=== PATIENT | male | born 1940 | race Caucasian/White ===

== ENCOUNTER → 2019-11-04 | Outpatient (CLI) | payer OTHER | LOC: SJCVC 09:57 → SJCVCIMAG 09:57 | DX: R94.31 Abnormal electrocardiogram [ECG] [EKG] (principal); I45.10 Unspecified right bundle-branch block; R42 Dizziness and giddiness; R07.9 Chest pain, unspecified; I25.10 Atherosclerotic heart disease of native coronary artery without angina pectoris; I65.23 Occlusion and stenosis of bilateral carotid arteries; E78.00 Pure hypercholesterolemia, unspecified; I48.91 Unspecified atrial fibrillation; I48.92 Unspecified atrial flutter; I10 Essential (primary) hypertension; I73.9 Peripheral vascular disease, unspecified; Z95.1 Presence of aortocoronary bypass graft; Z95.2 Presence of prosthetic heart valve ==

== ENCOUNTER → 2019-11-13 | Outpatient (CLI) | payer OTHER ==
[~2019-11-13] VITALS: Ht 182.9 cm; Wt 92.5 kg
[~2019-11-13] MED LIST: ATORVASTATIN CA80 MG PO; COUMADIN 1MG TAB1 M1 PO; NOVOLOG100 UNIT/M SUBQ; PROTONIX40 M4 PO; QUINAPRIL 20 MG20 MG PO; TOPROL XL25 MG PO
[2019-11-13 07:18] VITALS: BP 143/66
[2019-11-13 07:49] LABS: HEMATOCRIT 38.6 % (42.0-52.0); HEMOGLOBIN 12.5 gm/dL (14.0-18.0); MCH 26.1 pg (26.0-34.0); MCHC 32.4 g/dL (28.0-37.0); MCV 80.8 fL (80.0-100.0); RBC 4.78 mil/uL (4.50-6.00); RDW 18.5 % (10.5-14.5); WBC 6.7 thou/uL (4.0-11.0)
[2019-11-13 07:52] LABS: CALCIUM 8.8 mg/dL (8.5-10.1); CREATININE 1.2 mg/dL (0.7-1.3)
[2019-11-13 08:00] LABS: INR 1.1; PROTIME 11.2 Seconds (9.3-11.4)
--- NOTE | 2019-11-13 08:40 | EKG ---
[facility] [place] [address] ELECTROCARDIOGRAM REPORT Name: ASHA TRIPP Room #: REG [facility].#: [id number] Admission: 11/13/19 Attend Phys: Clayton Graf MD Discharge: Date of : 44 Report #: [id number] THIS REPORT FOR: cc: Buddy Garcia Craig H. 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[employer] Handler: Tyrell SWANSON : 1940 Requested By: Domenic Torres Order Number: [id number] MD: Bhavik Garcia Measurements Intervals [place] Rate: 72 P: [place]: QRS: 70 QRSD: 140 T: 20 QT: 426 QTc: 467 Interpretive Statements Atrial flutter with predominant 4:1 AV block Compared to ECG 12/09/2008 06:46:12 Atrial flutter has replaced sinus rhythm Electronically Signed On 11-13-2019 8:38:03 CDT by Bhavik Garcia [email or web address] <ELECTRONICALLY SIGNED> By: Bhavik Garcia MD, [facility] 11/13/19 0838 0719 8 Bhavik Garcia MD, [facility] /EPI
--- NOTE | 2019-11-18 10:16 | CATHLAB ---
[facility] [place] [address] INVASIVE PROCEDURE REPORT Name: ASHA TRIPP Room #: REG JEN Turner.#: [id number] Admission: 11/13/19 Attend Phys: Clayton Graf MD Discharge: Date of : 44 Report #: [id number] THIS REPORT FOR: cc: Buddy Garcia Gerald M. MD [facility] ~ APPROVED REPORT Study performed: 11/13/2019 09:26:28 Patient Details Patient Status: Out-Patient Room #: The patient is a 79 year-old male Event Personnel Domenic Torres Paint Crew Supervisor, Kamila Carrasco RN RN, Roopa Corley Paschal, Ja'net RTR Monitor Procedures Performed Art Access - R femoral artery* Coronaries Angiography and Bypass Grafts [id number] [facility] Hemostasis with Manual pressure Procedure Narrative The patient was brought electively to the Cardiac Catheterization Laboratory and was prepped and draped in a sterile manner. The was infiltrated with 1% Lidocaine subcutaneous anesthesia. A 6FR BRITE-TIP sheath was inserted into the RFA^. Coronary angiography was performed using coronary diagnostic catheters. The right coronary system was accessed and visualized with a JR4 catheter. The left coronary system was accessed and visualized with a JL4 catheter. Hemostasis was obtained with manual pressure following sheath removal without any complications. The patient tolerated the procedure well and there were no complications associated with the procedure. There was no hematoma. Intraoperative Conscious Sedation Sedation start time: 8:29 Case end Time: 10:12 Fentanyl 100 mcg Versed 2 mg This was a combo case with Dr. Graf he ordered 50mcg of Fentanyl and 1mg of Versed. Fluoro Time: 9.70 minutes Dose: DAP 06174.90 cGycm2 916 mGy [facility] [place] [address] INVASIVE PROCEDURE REPORT Name: ASHA TRIPP Room #: [facility]#: [id number] Admission: 11/13/19 Attend Phys: Clayton Graf, Discharge: Date of : 44 Report #: [id number] Contrast Type and Amount: Omnipaque 190 ml Hemodynamics The aortic pressure is 179/74 mmHg with a mean of 75 mmHg. Conclusion 1. Left main with mild ostial disease mild calcification no occlusive disease giving rise to LAD circumflex. #2 LAD with mild irregularities proximal calcification is moderately heavy. 2030% irregularities this extends around the apex. No indication for intervention. #3 circumflex OM nondominant small no occlusive disease #4 [place] right coronary artery occluded #5 SVG to PDA is intact with mild irregularities. Recommendations and plan: Continue aggressive risk factor modification. No indication for coronary intervention. Will follow discharge protocol. <ELECTRONICALLY SIGNED> By: Domenic Torres MD, [facility] 11/18/19 1014 1014 1014 Domenic Torres MD, FAC /INF
== END | disposition home or self-care (01) ==
LOC: CATH 06:32
PROVIDERS: Internal Medicine Cardiovascular Disease
DX: I25.810 Atherosclerosis of coronary artery bypass graft(s) without angina pectoris (principal); I65.23 Occlusion and stenosis of bilateral carotid arteries; I73.9 Peripheral vascular disease, unspecified; I70.1 Atherosclerosis of renal artery; I10 Essential (primary) hypertension; I48.91 Unspecified atrial fibrillation; I48.92 Unspecified atrial flutter; E11.9 Type 2 diabetes mellitus without complications; E78.00 Pure hypercholesterolemia, unspecified; J44.9 Chronic obstructive pulmonary disease, unspecified; F17.210 Nicotine dependence, cigarettes, uncomplicated; Z98.890 Other specified postprocedural states; Z79.899 Other long term (current) drug therapy; Z95.1 Presence of aortocoronary bypass graft; Z79.4 Long term (current) use of insulin; Z79.01 Long term (current) use of anticoagulants; Z95.2 Presence of prosthetic heart valve; Z96.651 Presence of right artificial knee joint

== ENCOUNTER → 2020-01-13 | Outpatient (CLI) | payer OTHER ==
[~2020-01-13] MED LIST changes: +AMARYL4 MG PO; +ASPIR 8181 M1 PO; +BYSTOLIC10 MG PO; +ENOXAPARIN100 MG/1 M SUBQ; +LISINOPRIL10 MG PO; +MUPIROCIN22 GM NASAL; +NORVASC10 MG PO; +PLAVIX 75 MG TA75 MG PO; +PROTONIX40 M2 PO; +VITAMIN C500 M1 PO; +VITAMIN D31250 MCG PO
== END | disposition home or self-care (01) ==
LOC: LAB
PROVIDERS: ATTEND Student in an Organized Health Care Education/Training Program
DX: Z01.812 Encounter for preprocedural laboratory examination (principal); Z20.828 Contact with and (suspected) exposure to other viral communicable diseases; I65.29 Occlusion and stenosis of unspecified carotid artery; Z98.890 Other specified postprocedural states; Z79.899 Other long term (current) drug therapy; Z88.2 Allergy status to sulfonamides; Z88.8 Allergy status to other drugs, medicaments and biological substances

== ENCOUNTER 2020-01-15 11:53 | Inpatient (IN) | payer OTHER ==
[~2020-01-15] VITALS: Ht 182.9 cm; Wt 99.8 kg
[~2020-01-15 11:53] MED LIST changes: -BYSTOLIC10 MG PO; -ENOXAPARIN100 MG/1 M SUBQ; -LISINOPRIL10 MG PO; -MUPIROCIN22 GM NASAL; -NORVASC10 MG PO
[2020-01-15 12:15] VITALS: BP 143/66
[2020-01-15 13:26] LABS: HEMATOCRIT 40.8 % (42.0-52.0); MCH 27.2 pg (26.0-34.0); MCHC 31.8 g/dL (28.0-37.0); MCV 85.5 fL (80.0-100.0); RBC 4.77 mil/uL (4.50-6.00); RDW 22.1 % (10.5-14.5); WBC 6.3 thou/uL (4.0-11.0)
[2020-01-15 13:38] LABS: CALCIUM 8.4 mg/dL (8.5-10.1); CREATININE 1.1 mg/dL (0.7-1.3); POTASSIUM 3.8 mmol/L (3.5-5.1)
[2020-01-15 13:39] LABS: INR 1.2; PROTIME 12.6 Seconds (9.3-11.4)
[2020-01-15 13:44] LABS: ALBUMIN 3.9 g/dL (3.4-5.0); TOTAL PROTEIN 7.3 g/dL (6.4-8.2)
--- NOTE | 2020-01-15 16:38 | NUR ---
IV STARTED. PENDING LAB RESULTS TO START PT'S HEPARIN GTT. PT. VERY CONVERSATIONAL AND POLITE, SHARE DHE LOST HIS RECENTLY OF 60 YEAR'S. DENIES ANY CHEST PAIN, DENIES ANY SOB, NOR ANY PAIN.
[2020-01-15 19:44] VITALS: BP 140/56
[2020-01-15 19:50] VITALS: BP 140/56
[2020-01-15 23:50] VITALS: BP 160/66
[2020-01-16 04:00] VITALS: BP 145/62
--- NOTE | 2020-01-16 06:40 | NUR ---
SLEPT PART OF SHIFT. WORKING ON GOALS AND PLAN OF CARE FOR NOC. NO FURTHER COMPLAINTS OF HEADACHE OR NECK ACHE. PROGRESSING TOWARDS GOALS FOR SURGERY MONDAY. PATIENT NOT SURE WHO TO PUT DESIGNATED PERSON SO WILL TALK WITH KIDS AND DECIDE. CONTINUE TO MONITOR HEPARIN AND LABS CLOSELY.
[2020-01-16 07:10] VITALS: BP 143/71
--- NOTE | 2020-01-16 08:24 | NUR ---
PT. ALERT AND CHATTING WITH STAFF. STATED HE "SLEPT ALL OF THE NIGHT AND NO ISSUES". HEADACHE HAS RESOLVED MOSTLY NOW A LEVEL=2 OF PAIN BUT "NOT AN ISSUE"...MEDICATIONS GIVEN NOW. IV IS NOW LEFT FOREARM UNDERSIDE, NO INFILTRATION OBSERVED.
[2020-01-16 11:26] VITALS: BP 129/63
[2020-01-16 15:00] VITALS: BP 104/55
--- NOTE | 2020-01-16 15:21 | NUR ---
11:30-PTT CAME BACK IN THERAPEUTIC RANGE THEREFORE NO CHANGES AT ALL IN CURRENT DOSING REGIME AND NEXT PTT WOULD BE DONE IN THE AM TOMORROW. NO SIGN'S OF BLEEDING.
--- NOTE | 2020-01-16 15:22 | NUR ---
PT. C/O HEADACHE TYLENOL GIVEN FOR SUCH, DESCRIBES IT "DULL AND OFTEN FROM HIS MUSCLE BEING TIGHT". TALKED ABOUT UPCOMING SURGERY AND WHAT TO EXPECT POST OP IN HIS RECOVERY.
--- NOTE | 2020-01-16 15:41 | NUR ---
PT. UP AT SIDE OF THE BED TO DANGLE, WANTS TO WALK THE UNIT-WILL VERIFY THIS WITH HIS CARE PLAN.
[2020-01-16 20:23] VITALS: BP 145/58
[2020-01-17] VITALS (30 sets, daily range): BP systolic 78–151; BP diastolic 25–89
--- NOTE | 2020-01-17 07:51 | NUR ---
0630 SLEPT MOST OF SHIFT. AM BATH COMPLETED. PREOP CHECK LIST COMPLETED. TO OR PER CART PAST REPORT. BELONGINGS INCLUDING CELL PHONE AND DENTURES TO ICU.
--- NOTE | 2020-01-17 12:41 | O ---
[facility] [place] [address] OPERATIVE REPORT Name: ASHA TRIPP Room #: 150-4 ADM IN M.R.#: [id number] Admission: 01/15/20 Attend Phys: Asha Gant MD Discharge: Date of : 44 Report #: [id number] THIS REPORT FOR: cc: Buddy Garcia,Buddy Inman,Asha Christensen MD ~ CC: Buddy Gant DATE OF SERVICE: 01/17/2020 PREOPERATIVE DIAGNOSIS: Left carotid artery stenosis. POSTOPERATIVE DIAGNOSIS: Left carotid artery stenosis. OPERATION: Transcarotid arterial revascularization, left side. SURGEON: Dr. Asha Gant and Dr. Clayton Graf SAMPLE STITCHER: PEGGY Bhakta ANESTHESIA: General. INDICATIONS: The patient is a 79-year-old with 80% left internal carotid stenosis. The patient presents with dizziness and near syncope, right side has trivial disease at the bifurcation. The patient has multiple areas of peripheral vascular disease and other spots, however. Because the patient had a mechanical aortic valve placed several years ago. He was admitted for IV heparin as a bridge to surgery and this will be started once cleared from this operation. TECHNIQUE: After general anesthesia was established, an incision was made in the left neck to expose the common carotid artery. A 5-0 Prolene pursestring was placed after vascular control was obtained. 10,000 units of heparin were given. The right femoral vein was accessed and the egress catheter was placed over a guidewire using fluoroscopic guidance. The carotid artery was entered with the arterial needle and a thin wire was passed into the internal carotid. Over this, the IV cannula was placed and then through this, an exchange was made for the stiffer wire. Over the stiffer wire, the TCAR access catheter was placed. An arteriogram was done to confirm placement and then balloon dilatation was [facility] [address] [address] OPERATIVE REPORT Name: ASHA TRIPP Room #: 150-4 ADM IN M.R.#: [id number] Admission: 01/15/20 Attend Phys: Asha Gant MD Discharge: Date of : 44 Report #: [id number] done with a 4 x 30 Cordis balloon. Two inflations of this were necessary. With the predilatation complete, the 8 x 40 Enroute stent was placed under fluoroscopic guidance. After the stent was placed, a 5.5 x 30 Cordis was used for post balloon dilatation. We waited 2 minutes and then performed an arteriogram. It should be mentioned that a CT was checked before proceeding with the transcarotid revascularization. The antegrade flow was stopped, and flow was initiated through the carotid to the femoral vein shot. After the arteriogram was taken, antegrade flow was reestablished and the carotid shunt was removed and the femoral component was also removed. The pursestring was able to close the arteriotomy nicely, but I added a second 6-0 Prolene reinforcement stitch. 25 mg of protamine was given to partially reverse and hemostasis was ascertained. The wound was closed in layers. Pressure was applied to the groin for the femoral access. When hemostasis was satisfactory, the wound was closed in the usual fashion and the patient was taken to the recovery area in satisfactory condition having tolerated the procedure well and there his neurologic progress was monitored. All counts reported as correct. <ELECTRONICALLY SIGNED> By: Asha Gant MD 01/17/20 1241 1104 1136 Asha Gant MD /nt
--- NOTE | 2020-01-17 12:41 | HC ---
[facility] [place] [address] CONSULTATION Name: ASHA TRIPP Room #: 150-4 ADM IN M.R.#: [id number] Admission: 01/15/20 Attend Phys: Asha Gant MD Discharge: Date of : 44 Report #: [id number] THIS REPORT FOR: cc: Buddy Garcia Damon DO Forman, John M. MD ~ CC: Buddy Gant DATE OF SERVICE: 01/15/2020 We were asked to see the patient in pursuance of treatment of his carotid artery disease. The patient was admitted by the hospitalists at our request for heparin bridge prior to transcarotid arterial revascularization. HISTORY OF PRESENT ILLNESS: The patient is a 79-year-old who has 80% left internal carotid artery stenosis. The patient also has a history of mechanical aortic valve replacement and is on chronic warfarin anticoagulation for this. The patient presents with a history of dizziness. This led to the carotid evaluation. PAST MEDICAL HISTORY: Hypertension, hyperlipidemia, diabetes mellitus, atrial fibrillation, chronic obstructive pulmonary disease. ALLERGIES: None known. MEDICATIONS AT HOME: Atorvastatin, insulin, metoprolol, quinapril, warfarin, pantoprazole, glimepiride, calcium, vitamin D, aspirin, and Plavix. SOCIAL HISTORY: The patient is a chronic smoker. FAMILY HISTORY: Not pertinent. REVIEW OF SYSTEMS: GENERAL: The patient denies fever, generalized fatigue. EYES: No vision change. HEENT: No headache. No nasal discharge. No sore throat. RESPIRATORY: No new cough or shortness of breath. CARDIAC: No new angina. GASTROINTESTINAL: No nausea, vomiting or diarrhea. GENITOURINARY: No urgency, frequency, blood. MUSCULOSKELETAL: No bone or joint problems. SKIN: No rash or infection. HEMATOLOGIC: Does report easy bruisability related to the anticoagulation. [facility] [address] [place] [address] CONSULTATION Name: ASHA TRIPP Tyrell Room #: 150-4 [facility] IN Johnny.#: [id number] Admission: 01/15/20 Attend Phys: Asha Gant MD Discharge: Date of : 42 Report #: [id number] MUSCULOSKELETAL: No bone or joint problems. NEUROLOGIC: No motor or sensory dysfunction. PSYCHIATRIC: Reports some depression following his 's recent . PHYSICAL EXAMINATION: GENERAL: The patient is a thin fellow. He is oriented and appropriate. VITAL SIGNS: Temperature 36.7, blood pressure 143/66, heart rate 70, room air O2 sat 99. HEENT: No scleral icterus, no arcus. NECK: No mass. There is a left carotid bruit audible. CHEST: Clear to auscultation. HEART: Rhythm is irregular. Valve click is audible. ABDOMEN: Soft, no mass. EXTREMITIES: No clubbing, cyanosis or edema. We note small ecchymoses scattered on the forearms. MUSCULOSKELETAL: No bone or joint problems, ectomorphic habitus. IMPRESSION: The patient has an 80% left internal carotid stenosis that we have recommended treatment with transcarotid arterial revascularization. For this, we need to admit the patient for an IV heparin bridge in preparation for surgery and warfarin has been stopped. We have scheduled surgery for Monday morning. We appreciate the hospitalist's help in managing this patient with multiple medical issues. Thank you for the consult. <ELECTRONICALLY SIGNED> By: Asha Gant MD 01/17/20 1241 1513 1903 Asha Gant MD /nt
--- NOTE | 2020-01-17 13:00 | NUR ---
pT RECIEVED FROM PACU AAOX4, SPEECH CLEAR, NEURO INTACT FOLLOWS COMMANDS. pLACED ON THE MONITOR, SHOWS NSR, JOAQUINA INTACT. RT NECK DRESSING INTACT WITH SMALL AMT OF DRAINAGE NOTED. PT ON RA. LUNGS CLEAR. ABD SOFT FORLEY TO DD URINE YELLOW. WILL CONT TO MONITOR.
--- NOTE | 2020-01-17 14:31 | NUR ---
chart review. pt up in bed, eating lunch. pt moved to icu after L carotid stenosis s/p TCAR op arteriography. per bedside staff pt independent. noted in chart pt independent. lives alone recently lost his . has son griffin zayas for support. no anticpated needs for dc. will cont following as needed for dc needs.
--- NOTE | 2020-01-17 18:00 | NUR ---
PT PROGRESSING SLOWING STILL C/OING OF HIS NECK AND HIS MOUTH BEING SO DRY. MONITO STILL SHOWING AFLUUTER AND SBP WNL. WILL CONT TO MONITOR.
[2020-01-17 23:14] LABS: HEMATOCRIT 35.2 % (42.0-52.0); HEMOGLOBIN 11.4 gm/dL (14.0-18.0); MCH 27.6 pg (26.0-34.0); MCHC 32.4 g/dL (28.0-37.0); MCV 85.2 fL (80.0-100.0); RBC 4.13 mil/uL (4.50-6.00); RDW 22.5 % (10.5-14.5); WBC 12.8 thou/uL (4.0-11.0)
[2020-01-17 23:42] LABS: INR 1.1; PROTIME 11.1 Seconds (9.3-11.4)
[2020-01-18] VITALS (23 sets, daily range): BP systolic 89–143; BP diastolic 26–81
[2020-01-18 07:10] LABS: HEMATOCRIT 33.8 % (42.0-52.0); HEMOGLOBIN 10.9 gm/dL (14.0-18.0); MCH 27.5 pg (26.0-34.0); MCHC 32.2 g/dL (28.0-37.0); MCV 85.6 fL (80.0-100.0); RBC 3.95 mil/uL (4.50-6.00); RDW 22.2 % (10.5-14.5); WBC 11.9 thou/uL (4.0-11.0)
--- NOTE | 2020-01-18 07:26 | NUR ---
ASSESSMENT DOCUMENTED.PT RESTING IN THE CHAIR AT THIS TIME IN NO ACUTE DISTRESS.S/P TCAR 22 LEFT CAROTID ARTERY STENOSIS.DRESSING INTACT TO LEFT NECK INCISION,NO ACTIVE BLEEDING OR HEMATOMA NOTED.PT HYPOTENSIVE,BLOOD PRESSURE MAINTAINED ON LEVOPHED,INFUSING AT 3MCG/MIN.PT AFLUTTER WITH SVR ON MONITOR.HEPARIN DRIP INFUSING AT 10ML/HR.LAST APPT THERAPEUTIC.NO EDEMA TO DOMINIC LES.ART LINE INTACT,RIGHT FA SUPPORTED WITH ARM BENNETT.ON RA W/O RESP DISTRESS NOTED.PT GET TIRED EASILY UPON EXERTION.FOLY DD,YELLOW URINE,ADEQAUTE UO NOTE AND DOCUMENTED.SBA WITH TRANSFERS.PT REMAINS ALERT AND ORIENTED X4.C/O HEADACHES AND LIGHTHEADEDNESS INTERMITTENTLY ACCOMPANIED BY NAUSEA.HEADACHES CONTROLLED WITH TYLENOL WHILE NAUSEA IS CONTROLLED WITH ZOFRAN AND PPI.BOWEL SOUNDS HYPOACTIVE,REQUESTED TO GET TO BSCX3 W/O BM BUT PASSES FLATUS.PT DENIES ANY OTHER NEEDS AT THIS TIME.POC IS TO CONT W/CURRENT TX.WILL MONITOR.
[2020-01-18 07:28] LABS: CALCIUM 8.1 mg/dL (8.5-10.1); CREATININE 1.2 mg/dL (0.7-1.3)
--- NOTE | 2020-01-18 14:41 | NUR ---
DR. RAPP INFORMED THAT DR. JOY INCREASED COUMADIN DOSE TO 10MG.
--- NOTE | 2020-01-18 17:32 | NUR ---
PT TRANSFERED FROM ICU IN STABLE CONDITION. HAD HR 30'S DR. JACKSON NOTIFIED. NO NEW ORDERS. SEEN BY DR. RAPP. ORDERS GIVEN TO D/C ADELA. HEPARIN DRIP INFUSING. A FLUTTER ON TELE. NO CONCERNS AT THIS TIME. WILL CONTINUE TO MONITOR.
[2020-01-19 00:30] VITALS: BP 125/46
[2020-01-19 04:30] VITALS: BP 138/53
--- NOTE | 2020-01-19 05:14 | NUR ---
Assumed pt care at 1900. Pt is alert and oriented. No sign of distress noted in pt. Pt is ambulatory and steady. Call light within reach. Assessment completed and documented. Scheduled meds administered to pt . Tolerated PO intake. Continue to monitor pt. Denies any further needs at this time.
[2020-01-19 07:52] VITALS: BP 129/52
[2020-01-19 10:48] LABS: INR 1.1; PROTIME 11.4 Seconds (9.3-11.4)
[2020-01-19 11:32] VITALS: BP 114/47
[2020-01-19 16:30] VITALS: BP 138/63
[2020-01-19 19:49] VITALS: BP 157/72
--- NOTE | 2020-01-19 20:51 | NUR ---
RECEIVED PT'S CARE AROUND 0720; PT. ON BED; ALERT; DURING AM ASSESSMENT AOX4; C/O HEADACHE; PRN ACETAMINOPHEN GIVEN TOGETHER WITH AM; EDUCATED ABOUT THE REASON OF HOLDING BP MEDICATION; EDUCATED ABOUT THE NEED OF TEAKING PO & IV BLOOD THINNERS; ST. UNDERSTANDING; EDUCATED ABOUT FALL PREVENTIONS; ST. UNDERSTANDING; PRN MIRALAX GIVEN; PROM JUICE GIVEN; PT. ST. HAVING SMALL BM DURING AM; FEELING SOME CONSTIPATION; EDUCATED ABOUT NOT PUSHING WHILE TRYING TO HAVE A BM; AMBULATED AROUND THE [place] DURING THE AFTERNOON; TOLERATED WELL; AFLUTTER ON THE MONITOR; ASSESSMENT CHARGED; FOLLOWING POC; PASSED ON REPORT;
[2020-01-20 03:10] VITALS: BP 143/62
[2020-01-20 05:26] LABS: HEMATOCRIT 32.2 % (42.0-52.0); HEMOGLOBIN 10.4 gm/dL (14.0-18.0); MCHC 32.1 g/dL (28.0-37.0); MCV 87.2 fL (80.0-100.0); RBC 3.7 mil/uL (4.50-6.00); RDW 23.3 % (10.5-14.5)
[2020-01-20 05:50] LABS: APTT 50.2 Seconds (24.5-32.8); INR 1.2; PROTIME 11.8 Seconds (9.3-11.4)
--- NOTE | 2020-01-20 07:10 | NUR ---
ASSESSMENT DOCUEMENTED.PT BEEN RESTING IN NO ACUTE DISTRESS.A/OX4.VSS.ON HEAPRIN DRIP AT 10UNITS/KG/HR,APPT THIS AM THERAPEUTIC.INR 1.2.AFLUTTER W/ SVR AT TIME ON MONITOR.ON RA W/O RESP DISTRESS.AMBULATES INDEPENDENTLY TO BR.VOIDING ADEQAUTELY.CONT TO C/O OF MILD HEADCHES THAT ARE CONTROLLED WITH TYLENOL W/RELIEF.DENIES DIZZINESS OR SYNCOPE SPELLS.POC IS TO HAVE STABLE INR AT ATLEAST 1.8 THEN DISCHARGE TO HOME.PT ON COUMADIN 10MG AND PLAVIX 75MG WELL,NO ACTIVE BLEEDING NOTED.
[2020-01-20 08:00] VITALS: BP 129/47
[2020-01-20 10:20] VITALS: BP 139/72; BP 143/64; BP 151/70
[2020-01-20] MEDS ORDERED: MUPIROCIN22 GM NASAL (10:28)
[2020-01-20] MEDS ORDERED: COUMADIN 1MG TAB1 M1 PO (10:28)
[2020-01-20] MEDS ORDERED: LISINOPRIL10 MG PO (10:28)
[2020-01-20] MEDS ORDERED: ENOXAPARIN100 MG/1 M SUBQ (10:40)
--- NOTE | 2020-01-20 13:17 | NUR ---
ASSUMMED PT CARE AT APPROXIMATELY 0700. PT A&O X4. ASSESSMENT CHARTED. FALL PRECAUTIONS IN PLACE. PT DENIES HAVING CHEST PAIN. PT DENIES HAVING SOB. PT DENIES HAVING ACUTE PAIN. PT DISCHARGING HOME C SELF CARE. INTRUCTIONS GIVEN AND PT STATED UNDERSTANDING. PT GOING HOME C HEART MONITOR. EDUCATION GIVEN FOR PT TO FOLLOW UP C DR. ENRIQUE. IV'S DC. TELE DC. PT AMBULATES STEADY/INDPENDENT AROUND UNIT. PT COMFORTABLE. PT DENIES HAVING FURTHER CONCERNS.
[2020-01-20 13:20] VITALS: BP 143/64
== END 2020-01-20 14:01 | disposition home or self-care (01) | DRG 35 ==
LOC: 2N 11:53 → PRE 01-17 08:21 → TBA 01-17 08:33 → PRE 01-17 08:35 → ICU 01-17 12:55 → 2N 01-18 15:28
PROVIDERS: Hospitalist; Physician Assistant; ADMIT Surgery Vascular Surgery; ATTEND Surgery Vascular Surgery
PROC: 037L3DZ Dilation of Left Internal Carotid Artery with Intraluminal Device, Percutaneous Approach (ICD-10-PCS; principal; 2020-01-17)
DX: I65.22 Occlusion and stenosis of left carotid artery (principal); I48.92 Unspecified atrial flutter; I48.21 Permanent atrial fibrillation; R57.9 Shock, unspecified; I10 Essential (primary) hypertension; J44.9 Chronic obstructive pulmonary disease, unspecified; I25.10 Atherosclerotic heart disease of native coronary artery without angina pectoris; E11.51 Type 2 diabetes mellitus with diabetic peripheral angiopathy without gangrene; F17.210 Nicotine dependence, cigarettes, uncomplicated; K21.9 Gastro-esophageal reflux disease without esophagitis; I35.0 Nonrheumatic aortic (valve) stenosis; E78.5 Hyperlipidemia, unspecified; Z96.652 Presence of left artificial knee joint; Z95.1 Presence of aortocoronary bypass graft; Z88.8 Allergy status to other drugs, medicaments and biological substances; Z82.49 Family history of ischemic heart disease and other diseases of the circulatory system; Z88.2 Allergy status to sulfonamides; Z79.01 Long term (current) use of anticoagulants; Z95.820 Peripheral vascular angioplasty status with implants and grafts; Z90.49 Acquired absence of other specified parts of digestive tract; Z79.4 Long term (current) use of insulin; Z95.2 Presence of prosthetic heart valve; Z79.82 Long term (current) use of aspirin; Z79.899 Other long term (current) drug therapy
CPT/HCPCS: 10078; 10081; 47375; 50010; 50101; 50386; 50417; 51301; 54118; 56524; 56526; 56528; 65020; 65040; 70005

== ENCOUNTER → 2020-01-22 | Outpatient (CLI) | payer OTHER ==
[~2020-01-22] MED LIST changes: +BYSTOLIC10 MG PO; +ENOXAPARIN100 MG/1 M SUBQ; +LISINOPRIL10 MG PO; +MUPIROCIN22 GM NASAL; +NORVASC10 MG PO
== END ==
LOC: SJCVC 10:52
PROVIDERS: ATTEND Internal Medicine Cardiovascular Disease
DX: Z51.81 Encounter for therapeutic drug level monitoring (principal); I48.91 Unspecified atrial fibrillation; J44.9 Chronic obstructive pulmonary disease, unspecified; E11.9 Type 2 diabetes mellitus without complications; I25.10 Atherosclerotic heart disease of native coronary artery without angina pectoris; I10 Essential (primary) hypertension; E78.00 Pure hypercholesterolemia, unspecified; Z95.2 Presence of prosthetic heart valve; Z79.01 Long term (current) use of anticoagulants; Z79.899 Other long term (current) drug therapy

== ENCOUNTER 2020-01-23 19:35 | Inpatient (IN) | payer OTHER ==
[~2020-01-23] VITALS: Ht 182.9 cm; Wt 105.7 kg
--- NOTE | ~2020-01-23 | HC ---
[facility] [place] [address] CONSULTATION Name: ASHA TRIPP Room #: 209-P ADM IN M.R.#: [id number] Admission: 01/23/20 Attend Phys: Tico Bland MD Discharge: Date of : 44 Report #: [id number] THIS REPORT FOR: cc: Buddy Garcia,Buddy Inman,Asha Christensen MD ~ CC: Buddy Bland DATE OF SERVICE: 01/24/2020 HISTORY OF PRESENT ILLNESS: We were asked to see the patient. The patient is known to me from a transcarotid arterial revascularization procedure done approximately 1 week ago. Because the patient has a mechanical aortic valve, the patient had been bridged on IV heparin, both prior to and after the procedure. The TCAR procedure generally requires 1 month of aspirin and Plavix after surgery as well. The patient had satisfactory hospital convalescence after the last procedure and was discharged to home on Coumadin with some subcutaneous Lovenox until the INR was satisfactory. The patient appears to have been concerned about some swelling yesterday and sought consultation in the Emergency Department where he was admitted for observation overnight. There is no history of shortness of breath or swallowing difficulty with the hematoma. PAST MEDICAL HISTORY: Also significant for chronic atrial fibrillation, hypertension, hyperlipidemia, diabetes mellitus. MEDICATIONS: Lisinopril, warfarin, Lovenox in addition to atorvastatin, insulin, pantoprazole, glimepiride, Plavix. ALLERGIES: SULFA AND METFORMIN. SOCIAL HISTORY: The patient is a tobacco smoker. REVIEW OF SYSTEMS: CONSTITUTIONAL: No fever or chills. EYES: No vision changes. HEENT: The patient complains of headaches. No sinus problems. No swallowing difficulty. RESPIRATORY: No shortness of breath. CARDIAC: No chest pain. GASTROINTESTINAL: No nausea, vomiting, blood. GENITOURINARY: No urgency, frequency, blood. [facility] [address] [place] [address] CONSULTATION Name: ASHA TRIPP Room #: 209-P [facility] IN [facility]#: [id number] Admission: 01/23/20 Attend Phys: Tico Bland MD Discharge: Date of : 44 Report #: [id number] MUSCULOSKELETAL: No bone or joint pain. SKIN: Increased ecchymoses related to the anticoagulation. ENDOCRINE: No goiter, no tremor. PSYCHIATRIC: Anxiety. PHYSICAL EXAMINATION: VITAL SIGNS: In the hospital, the patient is afebrile, heart rate 90, atrial fibrillation. Blood pressure 164/61. HEENT: No scleral icterus, no arcus. NECK: Some hematoma at the incision site in the lower left neck with no pulsatility to this. No bruit audible. CHEST: Clear to auscultation. HEART: Rhythm is atrial fibrillation. No murmurs. Valve sounds are crisp. ABDOMEN: Soft, no mass, no tenderness. EXTREMITIES: No clubbing, cyanosis or edema. SKIN: We do note ecchymoses on arms. PSYCHIATRIC: The patient is sedated now. IMPRESSION: The patient has a hematoma related to the multiple anticoagulation regimen. Ultimately, the patient needs to be only on Coumadin and it would be nice to have a short transition period with Plavix 1 month. I will discuss with the others how we can manage this. There appears to be no indication for surgical intervention at this point. Thank you for the consult. By: 0826 0836 Asha Gant MD /nt
[~2020-01-23 19:35] MED LIST changes: -BYSTOLIC10 MG PO; -NORVASC10 MG PO
[2020-01-23 19:44] VITALS: BP 169/74
[2020-01-23 20:15] LABS: CALCIUM 8.6 mg/dL (8.5-10.1); CREATININE 1.1 mg/dL (0.7-1.3); POTASSIUM 4.2 mmol/L (3.5-5.1)
[2020-01-23 20:20] LABS: HEMATOCRIT 34.6 % (42.0-52.0); HEMOGLOBIN 11.3 gm/dL (14.0-18.0); MCH 28.3 pg (26.0-34.0); MCHC 32.7 g/dL (28.0-37.0); MCV 86.6 fL (80.0-100.0); RDW 23.8 % (10.5-14.5); WBC 5.5 thou/uL (4.0-11.0)
[2020-01-23 21:53] LABS: PROTIME 28.7 Seconds (9.3-11.4)
[2020-01-23 22:04] LABS: INR 2.8
[2020-01-23 23:09] VITALS: BP 152/71
[2020-01-23 23:34] VITALS: BP 172/87
[2020-01-24] VITALS (18 sets, daily range): BP systolic 128–218; BP diastolic 52–111
--- NOTE | 2020-01-24 01:33 | NUR ---
DUPLICATE MAKER ACTIVATED FOR PAIN. SEE RAPID REPSONSE INTERVENTION FOR DOCUMENTATION. PT REMAINED ON THE UNIT.
--- NOTE | 2020-01-24 05:22 | NUR ---
PT ARRIVED AT THE UNIT AROUND 2345, PT IS AWAKE, ALERT AND ORIENTED, MAKES NEEDS KNOWN, PT C/O PAIN ON THE LEFT NECK, PAIN MEDICATION GIVEN WITH NO RELIERF, BP ELEVATED, WEED BURNER NOTIFIFIED, ORDER RECEIVED WITH METOPROLOL, PT BP REMAINED ELEVATED, RAPID TEAM CALLED AROUND 0105, PT WAS SWEATING, HR ELEVATED; PAIN NOT RELIEVED BY PAIN MEDICINE, PAIN RADIATING TO THE BACK OF HIS NECK AND HEADACHE, EKG SHOWED AFLUTTER WITH RBBB, PAIN MEDICATIONS Q2 HRS WITH NO RELIEVE, BP AND HR REMAINS ELEVATED, DR. JACKSON ORDERED AN EXTRA DOSE OF MORPHINE, GIVEN WITH NO RELIEVE, DR. RAPP NOTIFIED ABT THE PT, NO ORDERS RECEIVED, WILL CONTINUE TO MONITOR
--- NOTE | 2020-01-24 08:12 | NUR ---
MULTIMEDIA JOURNALIST INFORMED ABT SUSTAINED TACHYCARDIA, ORDERS RECEIVED, CARDIZEM BOLUS GIVEN AND CARDIZEM GTT STARTED AT AROUND 0750, HR CONTROLLED, CARDENE STOPPED, BP 149/52, PT IS DROWSY AND CONFUSED PROBABLY D/T MEDICATIONS, MULTIM[employer]IA JOURNALIST AWARE; ASSEESSMENTS CHARTED, PASSED ON REPORT TO DAY NURSE
--- NOTE | 2020-01-24 09:17 | EKG ---
[facility] [place] [address] ELECTROCARDIOGRAM REPORT Name: ASHA TRIPP Room #: 209-P ADM IN M.R.#: [id number] Admission: 01/23/20 Attend Phys: Tico Bland MD Discharge: Date of : 44 Report #: [id number] THIS REPORT FOR: cc: Buddy Garcia Damon DO Lundgren,Bhavik Gaytan MD [facility] THIS REPORT FOR: //name// [facility] Test Date: 2020-01-24 Test Time: 01:06:35 Pat Name: ASHA TRIPP Department: Room: 209 Gender: M Silviculturist: Ki Brizuela : 1940 Requested By: Nidhi Dunn Order Number: [id number] MD: Bhavik Garcia Measurements Intervals [employer] Rate: 73 P: [place]: QRS: 29 QRSD: 147 T: 29 QT: 456 QTc: 503 Interpretive Statements Atrial flutter with varied AV block, Ventricular premature complex Right bundle branch block Baseline wander in lead(s) V1 Compared to ECG 11/13/2019 07:19:17 Ventricular premature complex(es) now present Electronically Signed On 01-24-2020 9:17:00 CDT by Bhavik Garcia [email or web address] <ELECTRONICALLY SIGNED> By: Bhavik Garcia MD, [facility] 01/24/20 0917 5 5 Bhavik Garcia MD, [facility] /EPI
--- NOTE | 2020-01-24 09:17 | EKG ---
[facility] [place] [address] ELECTROCARDIOGRAM REPORT Name: ASHA TRIPP Room #: 209-P ADM IN M.R.#: [id number] Admission: 01/23/20 Attend Phys: Tico Bland MD Discharge: Date of : 44 Report #: [id number] THIS REPORT FOR: cc: Buddy Garcia Damon DO Lundgren,Bhavik aGytan MD [facility] ~ THIS REPORT FOR: //name// [facility] Test Date: 2020-01-24 Test Time: 06:18:55 Pat Name: ASHA TRIPP Department: Room: 209 Gender: M [place] Block Setter: [id number] : 1940 Requested By: Nidhi Dunn Order Number: [id number] MD: Bhavik Garcia Measurements Intervals [place] Rate: 119 P: [place]: QRS: -20 QRSD: 143 T: 8 QT: 380 QTc: 535 Interpretive Statements Atrial flutter Ventricular premature complex Right bundle branch block Probable inferior infarct, age indeterminate Compared to ECG 01/24/2020 01:06:35 Inferior Q waves are now present Electronically Signed On 01-24-2020 9:17:39 CDT by Bhavik Garcia [email or web address] <ELECTRONICALLY SIGNED> By: Bhavik Garcia MD, [facility] 01/24/20916 7 7 Bhavik Garcia MD, [facility] /EPI
--- NOTE | 2020-01-24 09:18 | EKG ---
[facility] [place] [address] ELECTROCARDIOGRAM REPORT Name: ASHA TRIPP Room #: 209- ADM IN M.R.#: [id number] Admission: 01/23/20 Attend Phys: Tico Bland MD Discharge: Date of : 44 Report #: [id number] THIS REPORT FOR: cc: Buddy Garcia Damon DO Lundgren,Bhavik Gaytan MD [facility] ~ THIS REPORT FOR: //name// [facility] Test Date: 2020-01-24 Test Time: 06:18:55 Pat Name: ASHA TRIPP Department: Room: 209 Gender: M Therapy Tech: [id number] : 1940 Requested By: Tico Bland Order Number: [id number] MD: Bhavik Garcia Measurements Intervals [place] Rate: 119 P: VA: QRS: -20 QRSD: 143 T: 8 QT: 380 QTc: 535 Interpretive Statements Atrial flutter Ventricular premature complex Right bundle branch block Probable inferior infarct, age indeterminate Compared to ECG 01/24/2020 01:06:35 No significant change was found Electronically Signed On 01-24-2020 9:17:55 CDT by Bhavik Garcia [email or web address] <ELECTRONICALLY SIGNED> By: Bhavik Garcia MD, [facility] 01/24/20916 7 7 Bhavik Garcia MD, [facility] /EPI
[2020-01-24 09:23] LABS: HEMOGLOBIN 11.3 gm/dL (14.0-18.0); MCHC 32.2 g/dL (28.0-37.0); RBC 4.03 mil/uL (4.50-6.00); RDW 23.5 % (10.5-14.5); WBC 10.3 thou/uL (4.0-11.0)
[2020-01-24 09:31] LABS: CALCIUM 8.4 mg/dL (8.5-10.1); CREATININE 1.2 mg/dL (0.7-1.3); POTASSIUM 4.1 mmol/L (3.5-5.1)
[2020-01-24 09:34] LABS: INR 2.8; PROTIME 29.2 Seconds (9.3-11.4)
--- NOTE | 2020-01-24 14:28 | NUR ---
Nutrition: Pt admitted with post op hematoma to left neck, S/P Left TCAR on 01/16 and just D/C on 01/19. CTS consult. Nsg indicated poor intake and weight loss. [employer] hx does not indicate weight loss rather current weight up 5# from several days ago. Good po intake documented on recent admit. Unable to obtain further information as pt sleeping/groggy due to pain meds given earlier today. BG 270-277 with hx DM. Will add carb controlled to heart healthy diet order. Follow po intake trends but consider low nutrition risk.
--- NOTE | 2020-01-24 18:26 | NUR ---
ASSUMMED PT CARE AT APPROXIMATELY 0700. PT A&O X3 AND DROWSY MOST OF THE DAY. IN LATER AFTERNOON, PT BECAME MORE ALERT AND AWAKE. PT DENIES HAVING CHEST PAIN. PT DENIES HAVING SOB. PT DENIES HAVING ACUTE PAIN. PT HR AND BLOOD PRESSURE ELEVATED AT BEGINNING OF SHIFT. PT ON CARDIZEM AND CARDENE THROUGHOUT DAY. SEE MEDICATION TITRATION INTERVENTION. PT BLOOD PRESSURE STABLE. PT HR STABLE. VITAL SIGNS STABLE. MOVED PT CLOSER TO NURSING STATION AT BEGINNING OF SHIFT DUE TO PT BEING IMPULSIVE. PT CALM AND COOPERATIVE. PT COMFORTABLE. PT DENIES HAVING FURTHER CONCERNS.
[2020-01-25] VITALS: BP 182/74
[2020-01-25 04:00] VITALS: BP 150/71
--- NOTE | 2020-01-25 04:59 | NUR ---
PT IS ALERT AND ORIENTED X4. LUNGS ARE CLEAR ON ROOM AIR. WATCHES TV. AT ONE POINT DURING THE NIGHT INSTRUCTED HIM TO GET SOME REST AND TURN THE TV OFF. PAIN MEDS GIVEN NECK PAIN 7. COULDNT SLEEP.RESTING NOW AFTER TV OFF. LEFT NECK IS SWOLLEN AND PAINFULL. UP TO BEDSIDE COMMODE WITH ASSISTANCE. CALL LIGHT WITHIN REACH IF NEEDS ASSISTANCE WITH NURSING CARE
[2020-01-25 05:08] LABS: HEMATOCRIT 32.5 % (42.0-52.0); HEMOGLOBIN 10.6 gm/dL (14.0-18.0); MCH 28.4 pg (26.0-34.0); MCHC 32.8 g/dL (28.0-37.0); MCV 86.7 fL (80.0-100.0); PLATELET COUNT 187 thou/uL (150-400); RBC 3.74 mil/uL (4.50-6.00); WBC 9.4 thou/uL (4.0-11.0)
[2020-01-25 05:10] LABS: INR 3.5
[2020-01-25 05:23] LABS: ALBUMIN 3.4 g/dL (3.4-5.0); CALCIUM 8.6 mg/dL (8.5-10.1); CREATININE 0.9 mg/dL (0.7-1.3); MAGNESIUM 1.9 mg/dL (1.8-2.4); PHOSPHORUS 1.9 mg/dL (2.5-4.9); POTASSIUM 3.7 mmol/L (3.5-5.1); TOTAL BILIRUBIN 1.6 mg/dL (0.2-1.0); TOTAL PROTEIN 6.7 g/dL (6.4-8.2)
[2020-01-25 07:35] VITALS: BP 152/70
[2020-01-25 08:40] LABS: ABSOLUTE NEUTROPHILS 6.8 thou/uL (1.4-8.2)
[2020-01-25 08:41] LABS: ANISOCYTOSIS 1+; PLATELET ESTIMATE NORMAL
[2020-01-25] MEDS ORDERED: NORVASC10 MG PO (12:20)
[2020-01-25] MEDS ORDERED: BYSTOLIC10 MG PO (12:21)
[2020-01-25 12:41] VITALS: BP 152/70
--- NOTE | 2020-01-25 13:12 | NUR ---
ASSUMED CARE AT SHIFT CHANGE, ALERT AND ORIENTED X4, VSS. ASSESSMENT CHARTED AND SCHEDULED MORING MEDS GIVEN. DISCHARGE AND MEDICATION INSTRUCTION GIVEN TO PATIENT. DISCAHRGED HOME.
[2020-01-27 03:06] LABS: GLYCOHEMOGLOBIN (HGB A1C) 6.6 % (4.8-5.6)
== END 2020-01-25 13:29 | disposition home or self-care (01) | DRG 920 ==
LOC: ER 19:35 → 2N 22:46 → EROBS 22:46 → 2N 23:37
PROVIDERS: Internal Medicine; Nurse Practitioner; Nurse Practitioner Adult Health; ADMIT Hospitalist; ATTEND Hospitalist
DX: I97.638 Postprocedural hematoma of a circulatory system organ or structure following other circulatory system procedure (principal); I48.92 Unspecified atrial flutter; I48.20 Chronic atrial fibrillation, unspecified; Y83.9 Surgical procedure, unspecified as the cause of abnormal reaction of the patient, or of later complication, without mention of misadventure at the time of the procedure; K21.9 Gastro-esophageal reflux disease without esophagitis; J44.9 Chronic obstructive pulmonary disease, unspecified; I35.0 Nonrheumatic aortic (valve) stenosis; E11.51 Type 2 diabetes mellitus with diabetic peripheral angiopathy without gangrene; I16.0 Hypertensive urgency; I10 Essential (primary) hypertension; E78.5 Hyperlipidemia, unspecified; Z96.651 Presence of right artificial knee joint; Z79.01 Long term (current) use of anticoagulants; Z95.4 Presence of other heart-valve replacement; Z95.1 Presence of aortocoronary bypass graft; Z87.891 Personal history of nicotine dependence; Z90.49 Acquired absence of other specified parts of digestive tract; Y92.89 Other specified places as the place of occurrence of the external cause; Z88.2 Allergy status to sulfonamides; Z88.8 Allergy status to other drugs, medicaments and biological substances; Z72.89 Other problems related to lifestyle
CPT/HCPCS: 10081

== ENCOUNTER → 2020-01-28 | Outpatient (CLI) | payer OTHER ==
[~2020-01-28] MED LIST changes: +BYSTOLIC10 MG PO; +NORVASC10 MG PO
== END ==
LOC: SJCVC 10:16
PROVIDERS: ATTEND Internal Medicine Cardiovascular Disease
DX: Z51.81 Encounter for therapeutic drug level monitoring (principal); I25.10 Atherosclerotic heart disease of native coronary artery without angina pectoris; E11.9 Type 2 diabetes mellitus without complications; J44.9 Chronic obstructive pulmonary disease, unspecified; I10 Essential (primary) hypertension; E78.00 Pure hypercholesterolemia, unspecified; Z79.01 Long term (current) use of anticoagulants; Z95.2 Presence of prosthetic heart valve; Z79.899 Other long term (current) drug therapy

== ENCOUNTER → 2020-01-30 | Outpatient (CLI) | payer OTHER | LOC: SJCVC 10:52 | PROVIDERS: ATTEND Internal Medicine Cardiovascular Disease | DX: Z51.81 Encounter for therapeutic drug level monitoring (principal); I48.91 Unspecified atrial fibrillation; I25.10 Atherosclerotic heart disease of native coronary artery without angina pectoris; I10 Essential (primary) hypertension; E11.9 Type 2 diabetes mellitus without complications; E78.00 Pure hypercholesterolemia, unspecified; Z95.2 Presence of prosthetic heart valve; Z79.01 Long term (current) use of anticoagulants; Z79.899 Other long term (current) drug therapy ==

== ENCOUNTER → 2020-02-03 | Outpatient (CLI) | payer OTHER | LOC: SJCVC 10:45 | PROVIDERS: ATTEND Internal Medicine Cardiovascular Disease | DX: Z51.81 Encounter for therapeutic drug level monitoring (principal); I48.91 Unspecified atrial fibrillation; I25.10 Atherosclerotic heart disease of native coronary artery without angina pectoris; E11.9 Type 2 diabetes mellitus without complications; J44.9 Chronic obstructive pulmonary disease, unspecified; I10 Essential (primary) hypertension; Z95.2 Presence of prosthetic heart valve; E78.00 Pure hypercholesterolemia, unspecified; E78.5 Hyperlipidemia, unspecified; Z79.01 Long term (current) use of anticoagulants; Z79.4 Long term (current) use of insulin; Z79.899 Other long term (current) drug therapy ==

== ENCOUNTER → 2020-02-06 | Outpatient (CLI) | payer OTHER | LOC: SJCVC 12:54 | PROVIDERS: ATTEND Internal Medicine Cardiovascular Disease | DX: Z51.81 Encounter for therapeutic drug level monitoring (principal); Z79.01 Long term (current) use of anticoagulants ==

== ENCOUNTER → 2020-02-12 | Outpatient (CLI) | payer OTHER | LOC: SJCVC 09:58 | PROVIDERS: ATTEND Nuclear Medicine Nuclear Cardiology | DX: Z51.81 Encounter for therapeutic drug level monitoring (principal); I48.91 Unspecified atrial fibrillation; E11.9 Type 2 diabetes mellitus without complications; J44.9 Chronic obstructive pulmonary disease, unspecified; I25.10 Atherosclerotic heart disease of native coronary artery without angina pectoris; I10 Essential (primary) hypertension; I73.9 Peripheral vascular disease, unspecified; E78.00 Pure hypercholesterolemia, unspecified; Z95.2 Presence of prosthetic heart valve; Z79.01 Long term (current) use of anticoagulants; Z79.899 Other long term (current) drug therapy ==

== ENCOUNTER → 2020-02-17 | Outpatient (CLI) | payer OTHER | LOC: SJCVCIMAG 09:19 | PROVIDERS: ATTEND Nuclear Medicine Nuclear Cardiology | DX: I65.23 Occlusion and stenosis of bilateral carotid arteries (principal); I25.10 Atherosclerotic heart disease of native coronary artery without angina pectoris; I10 Essential (primary) hypertension; E11.9 Type 2 diabetes mellitus without complications; I73.9 Peripheral vascular disease, unspecified; I48.91 Unspecified atrial fibrillation; R00.1 Bradycardia, unspecified; J44.9 Chronic obstructive pulmonary disease, unspecified; E78.00 Pure hypercholesterolemia, unspecified; F17.210 Nicotine dependence, cigarettes, uncomplicated; Z95.2 Presence of prosthetic heart valve; Z79.01 Long term (current) use of anticoagulants; Z79.899 Other long term (current) drug therapy ==

== ENCOUNTER → 2020-09-08 | Outpatient (CLI) | payer OTHER | LOC: SJCVCIMAG 07:36 | PROVIDERS: ATTEND Internal Medicine Cardiovascular Disease | DX: R94.31 Abnormal electrocardiogram [ECG] [EKG] (principal); I08.8 Other rheumatic multiple valve diseases; I11.9 Hypertensive heart disease without heart failure; I65.23 Occlusion and stenosis of bilateral carotid arteries; I70.203 Unspecified atherosclerosis of native arteries of extremities, bilateral legs; I45.10 Unspecified right bundle-branch block; I48.92 Unspecified atrial flutter; E11.51 Type 2 diabetes mellitus with diabetic peripheral angiopathy without gangrene; I48.91 Unspecified atrial fibrillation; E78.00 Pure hypercholesterolemia, unspecified; I77.9 Disorder of arteries and arterioles, unspecified; I25.10 Atherosclerotic heart disease of native coronary artery without angina pectoris; J44.9 Chronic obstructive pulmonary disease, unspecified; F17.210 Nicotine dependence, cigarettes, uncomplicated; Z72.89 Other problems related to lifestyle; Z79.82 Long term (current) use of aspirin; Z79.899 Other long term (current) drug therapy; Z79.4 Long term (current) use of insulin; Z79.01 Long term (current) use of anticoagulants; Z95.2 Presence of prosthetic heart valve; Z88.2 Allergy status to sulfonamides; Z88.8 Allergy status to other drugs, medicaments and biological substances ==

== ENCOUNTER → 2020-09-15 | Outpatient (CLI) | payer OTHER | LOC: SJCVC 10:24 | PROVIDERS: ATTEND Internal Medicine Cardiovascular Disease | DX: R94.31 Abnormal electrocardiogram [ECG] [EKG] (principal); I45.10 Unspecified right bundle-branch block; I21.9 Acute myocardial infarction, unspecified; I48.3 Typical atrial flutter; I49.5 Sick sinus syndrome; I25.10 Atherosclerotic heart disease of native coronary artery without angina pectoris; E11.59 Type 2 diabetes mellitus with other circulatory complications; E78.00 Pure hypercholesterolemia, unspecified; J43.9 Emphysema, unspecified; I48.91 Unspecified atrial fibrillation; I45.5 Other specified heart block; Z79.4 Long term (current) use of insulin; Z79.82 Long term (current) use of aspirin; Z79.899 Other long term (current) drug therapy; Z88.2 Allergy status to sulfonamides; Z95.1 Presence of aortocoronary bypass graft; Z88.8 Allergy status to other drugs, medicaments and biological substances ==

== ENCOUNTER → 2020-09-21 | Outpatient (CLI) | payer OTHER | LOC: SJCVC 09:33 | PROVIDERS: ATTEND Internal Medicine Cardiovascular Disease | DX: Z51.81 Encounter for therapeutic drug level monitoring (principal); I48.91 Unspecified atrial fibrillation; E11.51 Type 2 diabetes mellitus with diabetic peripheral angiopathy without gangrene; J44.9 Chronic obstructive pulmonary disease, unspecified; I25.10 Atherosclerotic heart disease of native coronary artery without angina pectoris; I10 Essential (primary) hypertension; E78.00 Pure hypercholesterolemia, unspecified; Z95.2 Presence of prosthetic heart valve; Z79.01 Long term (current) use of anticoagulants ==

== ENCOUNTER → 2020-09-28 | Outpatient (CLI) | payer OTHER ==
[~2020-09-28] MED LIST changes: +ASPIRIN EC81 M1 PO; +NORVASC5 MG PO; +OLMESARTAN MEDO40 MG PO; +PERCOCET 10-321 EAC1 PO; +TIZANIDINE HCL4 M1 PO; +WARFARIN SODIUM3 MG PO
== END ==
LOC: SJCVC 08:27
PROVIDERS: ATTEND Internal Medicine Cardiovascular Disease
DX: Z51.81 Encounter for therapeutic drug level monitoring (principal); I48.91 Unspecified atrial fibrillation; E11.9 Type 2 diabetes mellitus without complications; J44.9 Chronic obstructive pulmonary disease, unspecified; I25.10 Atherosclerotic heart disease of native coronary artery without angina pectoris; I10 Essential (primary) hypertension; I73.9 Peripheral vascular disease, unspecified; E78.00 Pure hypercholesterolemia, unspecified; Z95.2 Presence of prosthetic heart valve; Z79.4 Long term (current) use of insulin; Z79.01 Long term (current) use of anticoagulants; Z79.899 Other long term (current) drug therapy; Z87.891 Personal history of nicotine dependence

== ENCOUNTER → 2020-09-28 | Outpatient (CLI) | payer OTHER | LOC: LAB 08:03 | PROVIDERS: ATTEND Internal Medicine Cardiovascular Disease | DX: Z01.812 Encounter for preprocedural laboratory examination (principal); Z20.822 Contact with and (suspected) exposure to COVID-19 ==

== ENCOUNTER 2020-09-30 06:27 | Observation (INO) | payer OTHER ==
[2020-09-30] VITALS (9 sets, daily range): BP systolic 129–154; BP diastolic 42–66
[~2020-09-30] VITALS: Ht 182.9 cm; Wt 98.9 kg
--- NOTE | ~2020-09-30 | P ---
[facility] [place] [address] PROCEDURE REPORT Name: ASHA TRIPP Room #: 213-P [facility]..#: [id number] Admission: 09/30/20 Attend Phys: Ajith Wallace MD, Discharge: Date of : 44 Report #: [id number] THIS REPORT FOR: cc: Buddy Garcia,Pineda Fuentes MD ~ DATE OF SERVICE: 09/30/2020 SVT ABLATION PREOPERATIVE DIAGNOSES: 1. Atrial flutter. 2. Bradycardia. 3. Prior mechanical aortic valve replacement. HISTORY: The patient is a 80-year-old with history of coronary artery disease, status post CABG and AVR in 2005 with a documented bradycardia on a recent cafeteria monitor. The patient has been in atrial flutter, which appears to be typical in nature for several years. He is here for atrial flutter ablation, EP study and possible pacemaker if bradycardia is noted. ANESTHESIA: The patient underwent MAC anesthesia with no anesthesia related complications. PROCEDURES PERFORMED: 1. SVT ablation, CPT code 29917. 2. Left atrial pacing and recording, CPT code 49290. 3. Intracardiac ultrasound, CPT code 08519. 4. 3D mapping, CPT code 60755. DESCRIPTION OF PROCEDURE: The patient underwent informed consent. We discussed the details of the procedure including the risks, which include but not limited to bleeding, vascular damage, stroke, NH as well as damage to mohegan conduction system requiring pacemaker. We discussed that if we find that he is bradycardic or has advanced AV block we will proceed with dual chamber pacemaker implantation during the same setting and the risks of this procedure included but are not limited to bleeding, infection, vascular damage, cardiac perforation, pneumothorax. He understood these risks and is willing to proceed. The patient was brought to the EP laboratory in fasting and nonsedated state and prepped and draped in a sterile fashion. His warfarin had been held and he therefore underwent a JOSE ANGEL performed by Dr. Wallace showing no evidence of left atrial appendage thrombus. As such, he was prepped for atrial flutter ablation. I injected lidocaine to the right groin and obtained access to the right femoral vein x 3, placing an 8, 9 and 7-Sinhala short sheath using the modified Seldinger technique. Next, under fluoroscopy, a decapolar catheter was placed [address] [address] PROCEDURE REPORT Name: ASHA TRIPP Room #: 213-P [facility] Satinder Engel#: [id number] Admission: 09/30/20 Attend Phys: Ajith Wallace MD, Discharge: Date of : 44 Report #: [id number] into the coronary sinus for left atrial pacing and recording. At baseline, the patient was in atrial flutter with a ventricular cycle length of 880 milliseconds and atrial cycle length of 235 milliseconds with a proximal to distal activation along the CS, a QRS duration of 119 milliseconds with a right bundle branch block and a QT interval 430 milliseconds. Next, I opened up an 8 mm ablation catheter and placed it in the right atrium and we created a detailed 3D voltage map and activation map of the atrial flutter and the map showed evidence of typical cavotricuspid isthmus dependent flutter in a counterclockwise manner. ATRIAL FLUTTER ABLATION: Next, the patient was prepared for ablation. An 8 mm ablation catheter was placed via a ramp sheath into the right atrium and ablation was performed at 70 valle and 60 degrees and a continuous drag lesion was performed. The continuous drag lesion was concluded until I fell into the IVC and the flutter had not terminated. It appeared that there were still signals along the posterior aspect of the line and therefore, I attempted to ablate this by retrograde prolapse along this region, but this did not result in termination. Therefore, I inspected along my prior line and on the proximal third of my line, there were some signals and ablation here resulted in termination of atrial flutter. The transisthmus conduction time was only 120 milliseconds. Therefore, I performed additional ablation, both medial and lateral to this region and then a repeat testing was performed and the transisthmus conduction time was now 170 milliseconds with an activation pattern consistent with bidirectional block. Post-ablation, the patient remained tachycardic and it was hard to determine if this was an atrial tachycardia or sinus tachycardia. The P-wave morphologies were somewhat biphasic in the inferior leads. Therefore, I thought this could be a possible omer tach. Therefore, map was performed and it appeared that everything was mapping close to the SA node. I performed pacing at this site and there was no phrenic nerve compromise. I performed 3 ablation lesions at this site and did not result in termination. Therefore, EP study was performed and I attempted to terminate this tachycardia and it appeared that it would terminate for about a second and then go right back into it. At this point, I thought this was likely just sinus tachycardia with an unusual P-wave morphology and I could not get it to terminate for more than 1 beat which may have just represented his sinus node recovery time. As such, the procedure was concluded. Post-ablation, he was in sinus tach at 515 milliseconds, QRS duration 200 milliseconds, ____ milliseconds, QT interval 350 milliseconds. Using intracardiac ultrasound, I verified there was no pericardial effusion. I then performed a oqdiup-cw-[id number] suture to his right groin, which was anchored by a 3-way stopcock. The patient awoke neurologically and hemodynamically intact. No complications and no significant bleeding. CONCLUSIONS: 1. Successful atrial flutter ablation. [facility] [address] [place] [address] PROCEDURE REPORT Name: ASHA TRIPP Room #: 213-P [facility] M.R.#: [id number] Admission: 09/30/20 Attend Phys: Ajith Wallace MD, Discharge: Date of : 42 Report #: [id number] 2. Normal SA gilbert function. 3. Normal AV gilbert function. 4. Normal His-Purkinje function. 5. No other inducible arrhythmias on or off isoproterenol. By: 1115 36 Pineda Herron MD /nt
[~2020-09-30 06:27] MED LIST changes: -ASPIRIN EC81 M1 PO; -NORVASC5 MG PO; -OLMESARTAN MEDO40 MG PO; -PERCOCET 10-321 EAC1 PO; -TIZANIDINE HCL4 M1 PO; -WARFARIN SODIUM3 MG PO
[2020-09-30 07:26] LABS: ABSOLUTE NEUTROPHILS 3.4 thou/uL (1.4-8.2); BASOPHILS 2.1 % (0.0-2.0); EOSINOPHILS 2.3 % (0.0-3.0); HEMATOCRIT 27.1 % (42.0-52.0); HEMOGLOBIN 8.6 gm/dL (14.0-18.0); LYMPHOCYTES 15.4 % (24.0-44.0); MCH 30.3 pg (26.0-34.0); MCHC 31.7 g/dL (28.0-37.0); MCV 95.6 fL (80.0-100.0); MONOCYTES 11.8 % (1.0-8.0); PLATELET COUNT 298 thou/uL (150-400); POLYS 68.4 % (36.0-66.0); RBC 2.84 mil/uL (4.50-6.00); WBC 4.9 thou/uL (4.0-11.0)
[2020-09-30 07:33] LABS: POTASSIUM 4.1 mmol/L (3.5-5.1)
[2020-09-30 07:38] LABS: ALBUMIN 3.6 g/dL (3.4-5.0); TOTAL BILIRUBIN 0.9 mg/dL (0.2-1.0)
[2020-09-30 07:52] LABS: APTT 25.2 Seconds (24.5-32.8); INR 1.4; PROTIME 14.2 Seconds (9.3-11.4)
[2020-09-30] MEDS ORDERED: NORVASC5 MG PO (08:49)
[2020-09-30] MEDS ORDERED: WARFARIN SODIUM3 MG PO (08:55)
[2020-09-30] MEDS ORDERED: TIZANIDINE HCL4 M1 PO (09:01)
[2020-09-30] MEDS ORDERED: OLMESARTAN MEDO40 MG PO (09:04)
[2020-09-30] MEDS ORDERED: ASPIRIN EC81 M1 PO (09:07)
[2020-09-30] MEDS ORDERED: PERCOCET 10-321 EAC1 PO (09:12)
--- NOTE | 2020-09-30 09:20 | TEE ---
[facility] Gabriel Rodriguez [facility] [place] [address] TRANSESOPHAGEAL ECHOCARDIOGRAM Name: ASHA TRIPP Room #: REG [facility]#: [id number] Admission: 09/30/20 Attend Phys: Ajith Wallace MD, Discharge: Date of : 44 Report #: [id number] THIS REPORT FOR: cc: Buddy Garcia Damon DO Santiago, Patrick MD [facility] ~ APPROVED REPORT Study performed: 09/30/2020 07:32:15 EXAM: Comprehensive 2D, Doppler, and color-flow Echocardiogram Patient Location: Out-Patient Room #: EP Lab Status: routine BSA: 2.23 HR: 66 bpm BP: 160/69 mmHg Rhythm: Atrial Flutter Other Information Study Quality: Good Indications Atrial Fibrillation Echo Enhancing Agent Indication: Rule out Shunt Agent(s) / Amount(s) Used: Agitated Saline 7 cc Procedure After obtaining informed consent, patient underwent transesophageal echo in the EP Lab. Type of Sedation : Conscious Sedation Sedation was administered by Anesthesiologist. Sedation start time: 809 Case end Time: 820 Sedation was achieved intravenously with: Propofol (100 mcg) Transesophageal probe was inserted and advanced into esophagus without difficulty by Ajith Wallace MD. Echo enhancement indication: R/O Septal defect. Echo enhancement agent administered: Agitated Saline The JOSE ANGEL was performed without complications. Throughout the procedure, the blood pressure, pulse oximetry, cardiac [facility] [address] [place] [address] TRANSESOPHAGEAL ECHOCARDIOGRAM Name: ASHA TRIPP Room #: REG CL [facility].#: [id number] Admission: 09/30/20 Attend Phys: Ajith Wallace, Discharge: Date of : 44 Report #: [id number] rhythm, and rate were monitored. The patient tolerated the procedure without adverse effects. Recovery from conscious sedation was uneventful and vital signs were stable. Left Ventricle The left ventricle is normal size. There is normal LV segmental wall motion. There is normal left ventricular wall thickness. The left ventricular systolic function is normal. The left ventricular ejection fraction is within the normal range. LVEF is 50-55%. Right Ventricle The right ventricle is normal size. The right ventricular systolic function is normal. Atria Left atrium is dilated. Interatrial septum is intact without evidence of ASD or PFO. Right atrium is at the upper limits of normal. Aortic Valve Prosthetic aortic valve is normal in appearance. No aortic regurgitation is present. There is no aortic valvular stenosis. Mitral Valve The mitral valve is normal in structure. Mild mitral regurgitation. Tricuspid Valve The tricuspid valve is normal in structure. Mild tricuspid regurgitation. Pulmonic Valve The pulmonary valve is normal in structure. Great Vessels The aortic root is normal in size. Pericardium There is no pericardial effusion. <Conclusion> Consent was obtained Anesthesia was present for sedation Esophageal probe was advanced without difficulty. Left atrial appendage, small size, no obvious clot detected [facility] [address] [place] [address] TRANSESOPHAGEAL ECHOCARDIOGRAM Name: JOSEEASHA Tyrell Room #: REG CL [facility].#: [id number] Admission: 09/30/20 Attend Phys: Ajith Wallace, Discharge: Date of : 44 Report #: [id number] Left atrium was mildly dilated Normal left ventricle size/wall thickness Ejection fraction 55% Normal right ventricular size/function Bioprosthetic valve aortic valve position, no stenosis detected Mild mitral annular calcification Mild mitral valve insufficiency Mild tricuspid valve insufficiency No evidence of ASD/VSD by color flow/bubble study No pericardial effusion Aorta mild calcification throughout Patient tolerated the procedure well. <ELECTRONICALLY SIGNED> By: Ajith Wallace MD, FACC 09/30/20919 9 9 Ajith Wallace MD, FACC /INF
[2020-09-30 10:20] LABS: ANISOCYTOSIS 2+
[2020-09-30 10:21] LABS: OVALOCYTES FEW
--- NOTE | 2020-09-30 18:29 | NUR ---
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 AFLUTTER ABLATION PREFORMED. RIGHT GROIN SITE FOR ACCESS. GROIN SITE REMAINED FREE OF BLEEDING AND HEMATOMA THROUGHOUT DAY. AMBULATING AROUND ROOM WELL. PRN MEDS GIVEN FOR CHRONIC BACK PAIN. EDUCATED ON FALL AND PLAN OF CARE. VSS.
[2020-10-01 04:00] VITALS: BP 132/50
[2020-10-01 05:39] LABS: INR 1.28; PROTIME 13.8 Seconds (9.3-11.4)
--- NOTE | 2020-10-01 06:52 | NUR ---
RIGHT GROIN C/D/I.COMPLAIN OF LOWER BACK PAIN AND RIGHT CHEST PAIN BUT IT DOESN'T RADIATE TO ARM OR NECK.PAIN PILL GIVEN.VERBALIZED RELIEF.DENIES SOB.POC CONTINUED.
[2020-10-01 08:00] VITALS: BP 131/33
[2020-10-01 08:30] VITALS: BP 132/50
[2020-10-01 10:00] VITALS: BP 132/50
== END 2020-10-01 10:12 | disposition home or self-care (01) ==
LOC: CATH 06:27 → 2N 13:45 → CATH 14:17 → 2N 10-01 10:12
PROVIDERS: Internal Medicine Cardiovascular Disease; ADMIT Internal Medicine; ATTEND Internal Medicine
DX: I48.3 Typical atrial flutter (principal); R00.1 Bradycardia, unspecified; I25.10 Atherosclerotic heart disease of native coronary artery without angina pectoris; I10 Essential (primary) hypertension; E78.5 Hyperlipidemia, unspecified; J44.9 Chronic obstructive pulmonary disease, unspecified; E11.9 Type 2 diabetes mellitus without complications; Z79.82 Long term (current) use of aspirin; Z79.899 Other long term (current) drug therapy; Z79.84 Long term (current) use of oral hypoglycemic drugs; Z79.01 Long term (current) use of anticoagulants
CPT/HCPCS: 62110; 62900; 70005

== ENCOUNTER → 2020-10-05 | Outpatient (CLI) | payer OTHER ==
[~2020-10-05] MED LIST changes: +ASPIRIN EC81 M1 PO; +NORVASC5 MG PO; +OLMESARTAN MEDO40 MG PO; +PERCOCET 10-321 EAC1 PO; +TIZANIDINE HCL4 M1 PO; +WARFARIN SODIUM3 MG PO
== END ==
LOC: SJCVC 10:31
PROVIDERS: ATTEND Internal Medicine
DX: Z51.81 Encounter for therapeutic drug level monitoring (principal); I48.3 Typical atrial flutter; J43.9 Emphysema, unspecified; E11.65 Type 2 diabetes mellitus with hyperglycemia; E78.00 Pure hypercholesterolemia, unspecified; I48.91 Unspecified atrial fibrillation; I10 Essential (primary) hypertension; I25.10 Atherosclerotic heart disease of native coronary artery without angina pectoris; F17.210 Nicotine dependence, cigarettes, uncomplicated; Z79.01 Long term (current) use of anticoagulants; Z79.82 Long term (current) use of aspirin; Z79.4 Long term (current) use of insulin; Z79.899 Other long term (current) drug therapy; Z88.8 Allergy status to other drugs, medicaments and biological substances; Z88.2 Allergy status to sulfonamides; Z72.89 Other problems related to lifestyle

== ENCOUNTER → 2020-10-12 | Outpatient (CLI) | payer OTHER | LOC: SJCVC 09:35 | PROVIDERS: ATTEND Internal Medicine Cardiovascular Disease | DX: Z51.81 Encounter for therapeutic drug level monitoring (principal); E11.51 Type 2 diabetes mellitus with diabetic peripheral angiopathy without gangrene; J44.9 Chronic obstructive pulmonary disease, unspecified; I48.91 Unspecified atrial fibrillation; I25.10 Atherosclerotic heart disease of native coronary artery without angina pectoris; I10 Essential (primary) hypertension; E78.00 Pure hypercholesterolemia, unspecified; Z95.2 Presence of prosthetic heart valve; Z79.01 Long term (current) use of anticoagulants ==

== ENCOUNTER → 2020-10-19 | Outpatient (CLI) | payer OTHER | LOC: SJCVC 09:38 | PROVIDERS: ATTEND Internal Medicine Cardiovascular Disease | DX: Z51.81 Encounter for therapeutic drug level monitoring (principal); I48.91 Unspecified atrial fibrillation; E11.51 Type 2 diabetes mellitus with diabetic peripheral angiopathy without gangrene; E04.1 Nontoxic single thyroid nodule; J44.9 Chronic obstructive pulmonary disease, unspecified; I25.10 Atherosclerotic heart disease of native coronary artery without angina pectoris; I10 Essential (primary) hypertension; E78.00 Pure hypercholesterolemia, unspecified; Z95.2 Presence of prosthetic heart valve; Z79.01 Long term (current) use of anticoagulants ==

== ENCOUNTER → 2020-11-02 | Outpatient (CLI) | payer OTHER | LOC: SJCVC 10:39 | PROVIDERS: ATTEND Internal Medicine Cardiovascular Disease | DX: Z51.81 Encounter for therapeutic drug level monitoring (principal); Z79.01 Long term (current) use of anticoagulants ==

== ENCOUNTER → 2020-12-10 | Outpatient (CLI) | payer OTHER ==
[~2020-12-10] MED LIST changes: +AMIODARONE HCL400 MG PO
== END ==
LOC: SJCVC 15:20
PROVIDERS: ATTEND Internal Medicine Cardiovascular Disease
DX: R94.31 Abnormal electrocardiogram [ECG] [EKG] (principal); I45.2 Bifascicular block; I48.91 Unspecified atrial fibrillation; I48.3 Typical atrial flutter; J44.9 Chronic obstructive pulmonary disease, unspecified; I10 Essential (primary) hypertension; E78.5 Hyperlipidemia, unspecified; E11.9 Type 2 diabetes mellitus without complications; E78.00 Pure hypercholesterolemia, unspecified; F17.210 Nicotine dependence, cigarettes, uncomplicated; Z90.49 Acquired absence of other specified parts of digestive tract; Z95.1 Presence of aortocoronary bypass graft; Z98.890 Other specified postprocedural states; Z88.2 Allergy status to sulfonamides; Z88.5 Allergy status to narcotic agent; Z79.82 Long term (current) use of aspirin; Z79.4 Long term (current) use of insulin; Z79.899 Other long term (current) drug therapy; Z82.49 Family history of ischemic heart disease and other diseases of the circulatory system

== ENCOUNTER → 2020-12-15 | Outpatient (CLI) | payer OTHER ==
[~2020-12-15] VITALS: Ht 182.9 cm; Wt 92.0 kg
--- NOTE | ~2020-12-15 | P ---
[facility] [place] [address] PROCEDURE REPORT Name: ASHA TRIPP [facility] [id number] Admission: 12/15/20 Attend Phys: Pineda Herron MD Discharge: Date of : 44 Report #: [id number] THIS REPORT FOR: cc: Buddy Garcia Damon DO Couchonnal, Luis F. MD ~ DOC #: [id number] Pineda Herron MD DATE OF SERVICE: 12/15/2020 CARDIOVERSION PREOPERATIVE DIAGNOSIS: Atrial fibrillation. POSTOPERATIVE DIAGNOSIS: Atrial fibrillation. DESCRIPTION OF PROCEDURE: The patient underwent informed consent. He was prepped in a standard fashion. Patches were placed in AP position. He was sedated by the anesthesiology service and once sedated, underwent a 200 joule synchronized cardioversion with yarsanism of sinus rhythm. There were no procedure-related complications. CONCLUSION: Successful DC cardioversion with yarsanism of sinus rhythm. Pineda Herron MD LFC/KDA By: 1025 06 Pineda Herron MD /nt
[2020-12-15 07:44] LABS: ABSOLUTE NEUTROPHILS 3.3 thou/uL (1.4-8.2); BASOPHILS 1.3 % (0.0-2.0); EOSINOPHILS 2.3 % (0.0-3.0); HEMATOCRIT 34.7 % (42.0-52.0); HEMOGLOBIN 11.2 gm/dL (14.0-18.0); LYMPHOCYTES 16.1 % (24.0-44.0); MCH 27.9 pg (26.0-34.0); MCHC 32.2 g/dL (28.0-37.0); MCV 86.8 fL (80.0-100.0); MONOCYTES 12.7 % (1.0-8.0); PLATELET COUNT 174 thou/uL (150-400); POLYS 67.6 % (36.0-66.0); RBC 3.99 mil/uL (4.50-6.00); RDW 20.9 % (10.5-14.5); WBC 4.8 thou/uL (4.0-11.0)
[2020-12-15 07:50] VITALS: BP 157/56
[2020-12-15 07:53] LABS: CALCIUM 8.6 mg/dL (8.5-10.1); POTASSIUM 3.8 mmol/L (3.5-5.1)
[2020-12-15 07:59] LABS: ALBUMIN 3.4 g/dL (3.4-5.0); TOTAL BILIRUBIN 0.7 mg/dL (0.2-1.0); TOTAL PROTEIN 6.8 g/dL (6.4-8.2)
[2020-12-15 08:01] LABS: APTT 35.9 Seconds (24.5-32.8); PROTIME 25.1 Seconds (10.5-12.1)
[2020-12-15 08:03] LABS: INR 2.4
[2020-12-15 08:13] LABS: ANISOCYTOSIS 2+; OVALOCYTES 1+
--- NOTE | 2020-12-15 09:43 | EKG ---
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: SBUL : 1940 Requested By: Pineda Herron Order Number: [id number] MD: Bhavik Garcia Measurements Intervals [place] Rate: 71 P: -2 MT: 263 QRS: -53 QRSD: 149 T: 7 QT: 496 QTc: 540 Interpretive Statements Sinus rhythm Atrial premature complex Sinus pause Prolonged MT interval RBBB and LAFB Compared to ECG 01/24/2020 06:18:55 Atrial flutter is no longer present Electronically Signed On 12-15-2020 9:43:15 CDT by Bhavik Garcia [email or web address] <ELECTRONICALLY SIGNED> By: Bhavik Garcia MD, [facility] 12/15/2043 1 1 Bhavik Garcia MD, [facility] /EPI
== END | disposition home or self-care (01) ==
LOC: CATH 06:24
PROVIDERS: ATTEND Internal Medicine Cardiovascular Disease
DX: I48.91 Unspecified atrial fibrillation (principal); I10 Essential (primary) hypertension; E78.5 Hyperlipidemia, unspecified; E11.9 Type 2 diabetes mellitus without complications; I73.9 Peripheral vascular disease, unspecified; K21.9 Gastro-esophageal reflux disease without esophagitis; F17.210 Nicotine dependence, cigarettes, uncomplicated; Z98.890 Other specified postprocedural states; Z96.651 Presence of right artificial knee joint; Z79.899 Other long term (current) drug therapy; Z20.822 Contact with and (suspected) exposure to COVID-19; Z79.01 Long term (current) use of anticoagulants; Z79.4 Long term (current) use of insulin; Z90.49 Acquired absence of other specified parts of digestive tract; Z95.1 Presence of aortocoronary bypass graft
CPT/HCPCS: 62110; 62900

== ENCOUNTER → 2021-01-05 | Outpatient (CLI) | payer OTHER | LOC: SJCVC 09:56 | PROVIDERS: ATTEND Internal Medicine Cardiovascular Disease | DX: R94.31 Abnormal electrocardiogram [ECG] [EKG] (principal); I45.2 Bifascicular block; I48.19 Other persistent atrial fibrillation; I73.9 Peripheral vascular disease, unspecified; I10 Essential (primary) hypertension; E78.5 Hyperlipidemia, unspecified; J44.9 Chronic obstructive pulmonary disease, unspecified; I25.10 Atherosclerotic heart disease of native coronary artery without angina pectoris; E11.9 Type 2 diabetes mellitus without complications; E78.00 Pure hypercholesterolemia, unspecified; F17.210 Nicotine dependence, cigarettes, uncomplicated; Z72.89 Other problems related to lifestyle; Z95.1 Presence of aortocoronary bypass graft; Z95.2 Presence of prosthetic heart valve; Z79.01 Long term (current) use of anticoagulants; Z79.4 Long term (current) use of insulin; Z79.82 Long term (current) use of aspirin; Z88.2 Allergy status to sulfonamides; Z88.8 Allergy status to other drugs, medicaments and biological substances ==

== ENCOUNTER → 2021-04-06 | Outpatient (CLI) | payer OTHER | LOC: SJCVC 13:26 | PROVIDERS: ATTEND Nuclear Medicine Nuclear Cardiology | DX: R94.31 Abnormal electrocardiogram [ECG] [EKG] (principal); I45.2 Bifascicular block; I48.91 Unspecified atrial fibrillation; I48.3 Typical atrial flutter; I65.29 Occlusion and stenosis of unspecified carotid artery; I25.10 Atherosclerotic heart disease of native coronary artery without angina pectoris; I48.19 Other persistent atrial fibrillation; E11.59 Type 2 diabetes mellitus with other circulatory complications; J44.9 Chronic obstructive pulmonary disease, unspecified; E78.00 Pure hypercholesterolemia, unspecified; I10 Essential (primary) hypertension; F17.210 Nicotine dependence, cigarettes, uncomplicated; Z72.89 Other problems related to lifestyle; Z79.82 Long term (current) use of aspirin; Z79.01 Long term (current) use of anticoagulants; Z79.4 Long term (current) use of insulin; Z79.899 Other long term (current) drug therapy; Z88.5 Allergy status to narcotic agent; Z88.2 Allergy status to sulfonamides; Z82.49 Family history of ischemic heart disease and other diseases of the circulatory system ==